=== PATIENT | female | born 1955 | race Caucasian/White ===

== ENCOUNTER 2020-10-24 09:03 | Day surgery (SDC) | payer OTHER ==
[2020-10-22 13:44] LABS: CALC OSMOLALITY 276 mosm/kg (275-300); CALCIUM 8.9 mg/dL (8.5-10.1); CARBON DIOXIDE 29.2 mmol/L (21.0-32.0); CHLORIDE - SERUM 103 mmol/L (98-107); CREATININE - SERUM 0.8 mg/dL (0.6-1.3); GLUCOSE 99 mg/dL (74-106); POTASSIUM - SERUM 4.2 mmol/L (3.5-5.1); SODIUM 137 mmol/L (136-145); UREA NITROGEN 21 mg/dL (7-18); eGFR NON AFRICAN AMERICAN 77 mL/min (90-120)
[2020-10-22 14:06] LABS: BASOPHILS 0.8 % (0-2); EOSINOPHILS 3.8 % (0-7); HEMATOCRIT 46.1 % (36.0-48.0); HEMOGLOBIN 15.2 g/dL (12-16); LYMPHOCYTES 36.1 % (15-50); MCH 30.3 pg (26.0-34.0); MCV 91.7 fL (80.0-100.0); MEAN PLATELET VOLUME 8.7 fL (7.4-10.4); MONOCYTES 6.5 % (2-11); NEUTROPHILS 52.8 % (40-80); PLATELET COUNT 333 10x3/uL (130-400); RBC 5.03 10x6/uL (4.00-5.40); RDW 12.8 % (11.5-14.5); WBC 9.2 10x3/uL (4.8-10.8)
[~2020-10-24] VITALS: Ht 160 cm; Wt 90.7 kg
--- NOTE | ~2020-10-24 | OP ---
PATIENT NAME: ADRIA RAMIREZ MEDICAL RECORD: [id number] :59 LOCATION:D.OPS ADMISSION DATE: SURGEON: TIMOTHY WHITE DPM DATE OF OPERATION: 10/24/2020 PREOPERATIVE DIAGNOSES: Achilles tendon disruption with calcaneal spur. POSTOPERATIVE DIAGNOSES: Achilles tendon disruption with calcaneal spur. PROCEDURES: 1. Left gastroc recession. 2. Left calcaneal spur removal. 3. Left Achilles tendon repair. ANESTHESIA: General with preoperative popliteal block per the anesthesia department. HEMOSTASIS: Left thigh tourniquet at 320 mmHg. PREOPERATIVE DETAILS: The patient was taken to the OR and following induction of general anesthesia, the patient was placed on the operating table in a prone position. The left extremity was then prepped and draped in the usual aseptic technique followed by exsanguination of extremity and inflation of tourniquet. PROCEDURE #1: Gastroc recession. A #15 blade was used to create a 3 cm linear incision over the posterior aspect of the gastroc aponeurosis. The incision was deepened down through subcutaneous tissue. The sural nerve and vein were visualized and retracted in the wound. The peritenon was then visualized and incised with a #15 blade. The aponeurosis was then visualized directly with the foot held in dorsiflexion. A cut was made through the aponeurosis allowing adequate ankle joint dorsiflexion. The paratenon was then repaired with 4-0 Rapide. The subcutaneous tissue was reapproximated as well as the skin was closed with skin mika. PROCEDURE #2: Removal of posterior calcaneal spurring. An incision was made on the posterior aspect of the left calcaneus, slightly medial to the midline, extending proximally 2 inches total. The incision was deepened down to the Achilles tendon. There was noted to be significant swelling around the tendon and bursitis. The tendon was freed from the posterior aspect of the calcaneus. There was noted to be intratendinous calcifications. There was enlarged posterior calcaneus, which was resected with a bone saw and smoothed with a bone rasp. The intratendinous calcifications were excised sharply with a scalpel. PROCEDURE #3: Achilles tendon repair, left foot. Utilizing 4 anchors from the Arthrex suture bridge technique, the Achilles tendon was repaired to the posterior aspect of the calcaneus with excellent rigid internal fixation. I was able to dorsiflex the foot to show excellent repair. The wound was flushed. The deep tissue was reapproximated with 2-0 Vicryl, the subcutaneous tissue with 4-0 Rapide and the skin was closed with 4-0 Rapide in a subcuticular technique followed by Dermabond, Adaptic, 4 x 4 and conform were used to dress the wound followed by a modified Holcomb compression dressing. POSTOPERATIVE DETAILS: The patient tolerated the procedure well and left the OR with vital signs stable and vascular status at preoperative levels. The patient was transported to recovery per anesthesia in stable condition. OPERATIVE REPORT [id number] ADRIA RAMIREZ TRANSINT:[id number] Voice Confirmation ID: [id number] DOCUMENT ID: [id number] TIMOTHY WHITE DPM CC: [id number] DICTATION DATE: 10/24/20 1308 CLASSIFIED AD TAKER: 10/24/20 1408 [facility] [address] [id number]
[2020-10-24 08:19] VITALS: BP 117/71; Ht 160 cm; Wt 90.7 kg
[~2020-10-24 09:03] MED LIST: CLONIDINE HCL0.1 MG; DIPROLENE 0.05%50 GM; DITROPAN XL 1010 MG PO; ESTRACE 0.5 MG0.5 MG PO; FEXOFENADINE HC60 MG PO; FLUTICASONE PRO16 GM NASAL; GLUCOPHAGE500 MG PO; MULTI-DAY VITAM1 TAB PO; NAPROXEN SODIU220 M1 PO; NEURONTIN600 MG PO; OCELLA 3 MG-0.1 EACH; PATADAY2.5 ML EACH EYE; PEPCID AC20 MG PO; PROAIR HFA8.5 G1; PROTONIX40 MG PO; ROPINIROLE HCL0.5 MG PO; SINGULAIR10 MG PO; TRAVATAN Z2.5 ML EACH EYE; ULTRAM50 MG; ZANAFLEX2 M1
== END 2020-10-24 16:40 | disposition home or self-care (01) ==
LOC: D.OPS 09:03
PROVIDERS: Anesthesiology; ATTEND Podiatrist
DX: S96.012A Strain of muscle and tendon of long flexor muscle of toe at ankle and foot level, left foot, initial encounter (principal); X58.XXXA Exposure to other specified factors, initial encounter; M77.32 Calcaneal spur, left foot; I10 Essential (primary) hypertension; F17.200 Nicotine dependence, unspecified, uncomplicated